=== PATIENT | male | born 1975 | race American Indian/Alaskan Native ===

== ENCOUNTER 2017-02-20 12:29 | Emergency (ER) | payer BC ==
--- NOTE | 2017-02-20 13:00 | Emergency Department Report ---
Entered by MIGUEL VARELA, acting as scribe for SERA CORRALES NP. Chief Complaint: GI Bleed Stated Complaint: VOMITING BLOOD Time Seen by Provider: 02/20/17 12:54 - HPI History of Present Illness: 41 y/o male with Hx of HTN presents with abd pain and hematemisis that has been going on for two months.. Sx include fatigue but pt denies chest pain or COLON. Pt denies taking any medication for HTN. - ROS Review of Systems: + hematemesis +abd pain +fatigue -chest pain -COLON - Exam Vital Signs: Vital Signs 02/20/17 12:48 Temperature 98.5 F Pulse Rate 97 H Respiratory 20 Rate Blood Pressure 194/129 O2 Sat by Pulse 100 Oximetry Physical Exam: abd: soft/nontender in all quadrants, no rebound or guarding. MSE screening note: Focused history and physical exam performed. Due to findings the following was ordered: ekg, labs ED Disposition for MSE Condition: Stable Forms: Accompanied Note This documentation as recorded by the scribe,MIGUEL VARELA,accurately reflects the service I personally performed and the decisions made by SAVANNA ordonez TRACY M, NP.
[2017-02-20 13:34] LABS: Basophils % (Auto) 0.9 % (0.0-1.8); Eosinophils % (Auto) 0.8 % (0.0-4.3); Hematocrit 45.9 % (35.5-45.6); Hemoglobin 14.5 gm/dl (11.8-15.2); Mean Corpuscular HGB Conc 32 % (32-34); Mean Corpuscular Hemoglobin 27 pg (28-32); Mean Corpuscular Volume 84 fl (84-94); Red Blood Count 5.45 M/mm3 (3.65-5.03); Red Cell Distribution Width 13.4 % (13.2-15.2); White Blood Count 8.2 K/mm3 (4.5-11.0)
[2017-02-20 13:42] LABS: INR 0.97 (0.87-1.13)
[2017-02-20 13:43] LABS: Partial Thromboplastin Time 28.2 Sec. (24.2-36.6)
[2017-02-20 13:48] LABS: Platelet Count 251 K/mm3 (140-440)
[2017-02-20 13:51] LABS: Alanine Aminotransferase 31 units/L (7-56); Albumin 4.6 g/dL (3.9-5); Albumin/Globulin Ratio 1.4 %; Alkaline Phosphatase 77 units/L (35-129); Anion Gap 21 mmol/L; Blood Urea Nitrogen 12 mg/dL (9-20); Calcium 9.3 mg/dL (8.4-10.2); Carbon Dioxide 22 mmol/L (22-30); Chloride 103.6 mmol/L (98-107); Glucose 92 mg/dL (75-100); Lipase 28 units/L (13-60); Potassium 3.9 mmol/L (3.6-5.0); Sodium 143 mmol/L (137-145)
--- NOTE | 2017-02-20 22:23 | Emergency Department Report ---
HPI - General Chief Complaint: GI Bleed Time Seen by Provider: 02/20/17 20:55 - HPI HPI: The patient is a 41-year-old male who presents for evaluation of chest pain. Patient reports chest pain for the past one day, midsternal in location, burning in quality, 5/10 in severity, exacerbated with retching or vomiting. He states that his symptoms began after multiple episodes of vomiting and one large episode of hematemesis. 8 hours ago. He has not had any hematemesis in the past 8 hours. He admits to frequent alcohol consumption. The patient denies fever, cough, dyspnea, syncope, hemoptysis, unilateral leg swelling, recent immobilization, history of DVT or PE, recent cancer. ED Past Medical Hx - Past Medical History Hx Hypertension: Yes Additional medical history: etoh abuse,enlarged heart - Social History Smoking Status: Current Some Day Smoker Substance Use Type: Alcohol - Medications Home Medications: Home Medications Medication Instructions Recorded Confirmed Last Taken Type HYDROcodone/APAP 5-325 [[place] 1 each PO Q6HR PRN #10 tablet 01/06/16 Unknown Rx 5/325] Ibuprofen [Motrin 400 MG tab] 400 mg PO Q8H PRN #14 tablet 01/06/16 Unknown Rx Hydrochlorothiazide [HCTZ] 25 mg PO QDAY #30 tablet 02/21/17 Unknown Rx Omeprazole Magnesium [PriLOSEC Otc] 20 mg PO QDAY #30 tablet.dr 02/21/17 Unknown Rx Ondansetron [Zofran TAB] 4 mg PO Q8HR PRN #20 tablet 02/21/17 Unknown Rx traMADol [Ultram 50 MG tab] 50 mg PO Q6HR PRN #15 tablet 02/21/17 Unknown Rx ED Review of Systems ROS: Stated complaint: VOMITING BLOOD Other details as noted in HPI Constitutional: denies: fever ENT: denies: throat or neck pain Respiratory: denies: cough, shortness of breath Cardiovascular: reports chest pain Endocrine: denies unexplained weight loss or gain Gastrointestinal: denies: abdominal pain reports nausea, vomiting Genitourinary: denies: dysuria Musculoskeletal: denies: leg swelling Skin: denies: rash Neurological: denies: headache Hematological/Lymphatic: denies: easy bleeding or easy bruising Psych: denies sadness or hopelessness Physical Exam - Physical Exam Vital Signs: Vital Signs 02/20/17 02/20/17 12:48 22:07 Temperature 98.5 F 99.1 F Pulse Rate 97 H 95 H Respiratory 20 20 Rate Blood Pressure 194/129 199/174 O2 Sat by Pulse 100 100 Oximetry Physical Exam: General: well-nourished, well-developed, no acute distress Head: Normocephalic, atraumatic Eyes: normal sclera ENT: Mucous membranes are pink and moist Neck: trachea midline, neck supple, No neck stiffness, no cervical adenopathy Respiratory: Breath sounds equal bilaterally, no wheezing, rales, or rhonchi Cardio: S1 and S2 present, no murmurs, rubs, gallops, capillary refill is brisk Abdomen: Normoactive bowel sounds, soft abdomen, no rigidity, no guarding or rebound tenderness Musc: No pitting edema Skin: No rash Neuro: no facial drooping, normal speech Psych: Normal affect ED Course Vital Signs 02/20/17 02/20/17 12:48 22:07 Temperature 98.5 F 99.1 F Pulse Rate 97 H 95 H Respiratory 20 20 Rate Blood Pressure 194/129 199/174 O2 Sat by Pulse 100 100 Oximetry ED Medical Decision Making - Lab Data Result diagrams: 02/20/17 13:08 02/20/17 13:08 - Medical Decision Making The patient was seen and examined by myself. The patient is placed on a manager monitoring and continuous pulse ox. On initial evaluation, the patient was found to be in no distress. EKG was negative for findings suggestive of acute cardiac infarct. Labs and imaging are obtained. The patient is given IV morphine for his pain, and multiple doses of labetalol and IV hydralazine for her elevated blood pressure. The patient given IV Protonix for his hematemesis and suspected peptic ulcer secondary to frequent and heavy alcohol use. Chest x- ray is negative for pneumothorax, focal consolidation, pulmonary vascular congestion, pleural effusion, or other obvious acute cardiopulmonary disease process. Lab results were non-concerning including levels of troponin, WBC, hemoglobin, hematocrit, electrolytes, renal function. The patient was reevaluated and reported that their symptoms were markedly improved. On reexamination the patient's blood pressure was found to decrease outside of range concerning for hypertensive emergency. As the patient has a MATT risk score less than 2, and a well's score less than 2, the patient is at low risk of ACS or pulmonary emboli etiology of their symptoms. The patient is stable for discharge with outpatient follow-up. The patient is given follow-up and return instructions. The patient expressed understanding and agreed with the plan. The patient is discharged in stable condition. Critical care attestation.: If time is entered above; I have spent that time in minutes in the direct care of this critically ill patient, excluding procedure time. ED Disposition Clinical Impression: Camryn-Huffman tear, Hypertensive urgency, Acute chest pain GI bleed Qualifiers: GI bleed type/associated pathology: unspecified gastrointestinal hemorrhage type Qualified Code(s): K92.2 - Gastrointestinal hemorrhage, unspecified Disposition: TO HOME OR SELFCARE Is pt being admited?: No Does the pt Need Aspirin: No Condition: Stable Instructions: Chest Pain (ED), Hypertension (ED), Chronic Hypertension (ED), Peptic Ulcer (ED), Gastritis (ED), Diet for Ulcers and Gastritis (ED) Prescriptions: Hydrochlorothiazide [HCTZ] 25 mg PO QDAY #30 tablet Omeprazole Magnesium [PriLOSEC Otc] 20 mg PO QDAY #30 tablet. Ondansetron [Zofran TAB] 4 mg PO Q8HR PRN #20 tablet PRN Reason: Nausea traMADol [Ultram 50 MG tab] 50 mg PO Q6HR PRN #15 tablet PRN Reason: Pain Referrals: PRIMARY CARE,MD [Primary Care Provider] - 3-5 Days Forms: Accompanied Note Time of Disposition: 22:23
[2017-02-20] MEDS ORDERED: NORMODYNE IV ONE (22:39)
[2017-02-20] MEDS ORDERED: MORPHINE IV ONE (22:39)
[2017-02-20] MEDS ORDERED: PROTONIX IV ONE (22:39)
[2017-02-20] MEDS ORDERED: ZOFRAN IV ONE (22:39)
[2017-02-20 23:42] LABS: Bilirubin,Urine NEG (Negative); Blood,Urine NEG (Negative); Ketones,Urine NEG (Negative); Leukocyte Esterase,Urine NEG (Negative); Mucus,Urine FEW /HPF; Nitrite,Urine NEG (Negative)
[2017-02-20] MEDS ORDERED: APRESOLINE ONE (23:51)
[2017-02-20] MEDS ORDERED: APRESOLINE IV ONE (23:55)
[2017-02-21 02:56] VITALS: BP 128/82
--- NOTE | 2017-02-21 07:12 | XRay Report ---
AP CHEST: HISTORY: chest pain AP view of the chest demonstrates a normal mediastinal and cardiac contour with clear lungs and normal bony and soft tissue structures. IMPRESSION: Unremarkable AP chest.
== END 2017-02-21 02:45 | disposition home or self-care (01) ==
LOC: ED 12:29
DX: K22.6 Gastro-esophageal laceration-hemorrhage syndrome (principal); I10 Essential (primary) hypertension; F17.210 Nicotine dependence, cigarettes, uncomplicated
CPT/HCPCS: 36415; 71010; 80053; 81001; 83690; 84484; 85025; 85610; 85730; 86850; 86900; 86901; 93005; 93010; 96374; 96375; 99284; C9113; J0360; J2270; J2405

== ENCOUNTER 2019-08-24 12:01 | Emergency (ER) | payer SELFPAY ==
[2019-08-24] MEDS ORDERED: IBUPROFEN 800 MG TAB PO ONE (13:15)
--- NOTE | 2019-08-24 13:18 | Emergency Department Report ---
Chief Complaint: Back Pain/Injury Stated Complaint: BACK PAIN - HPI History of Present Illness: 43 yo male with right lower back pain radiating to rlq and right leg x 5 days no trauma but does perform some lifting at his job no n,v, hematuria, dysuria no hx of kidney stones - Exam Vital Signs: Vital Signs 08/24/19 12:05 Temperature 99 F Pulse Rate 78 Respiratory 22 Rate Blood Pressure 149/108 [Right] O2 Sat by Pulse 98 Oximetry Physical Exam: r flank tenderness rlq tenderness lungs ctab rrr MSE screening note: Focused history and physical exam performed. Due to findings the following was ordered: ua, cbc, bmp motrin ED Disposition for MSE Condition: Stable Referrals: PRIMARY CARE, [Primary Care Provider] - 3-5 Days
[2019-08-24 13:49] LABS: Bilirubin,Urine NEG (Negative); Blood,Urine NEG (Negative); Color,Urine Yellow (Yellow); Mucus,Urine FEW /HPF; Protein,Urine <15 mg/dL mg/dL (Negative); Urobilinogen,Urine < 2.0 mg/dL (<2.0); WBC,Urine < 1.0 /HPF (0.0-6.0)
[2019-08-24 14:43] LABS: Basophils # (Auto) 0.1 K/mm3 (0.0-0.1); Eosinophils # (Auto) 0.1 K/mm3 (0.0-0.4); Eosinophils % (Auto) 0.9 % (0.0-4.3); Hematocrit 43.6 % (35.5-45.6); Hemoglobin 14.2 gm/dl (11.8-15.2); Lymphocytes # (Auto) 1.1 K/mm3 (1.2-5.4); Lymphocytes % (Auto) 18.2 % (13.4-35.0); Mean Corpuscular HGB Conc 33 % (32-34); Mean Corpuscular Volume 83 fl (84-94); Monocytes # (Auto) 0.6 K/mm3 (0.0-0.8); Monocytes % (Auto) 9.5 % (0.0-7.3); Red Blood Count 5.25 M/mm3 (3.65-5.03); Red Cell Distribution Width 13.4 % (13.2-15.2)
--- NOTE | 2019-08-24 14:43 | Emergency Department Report ---
ED General Adult HPI - General Chief complaint: Back Pain/Injury Stated complaint: BACK PAIN Time Seen by Provider: 08/24/19 13:50 Source: patient Mode of arrival: Ambulatory Limitations: No Limitations - History of Present Illness Initial comments: 43-year-old male complaining of right flank pain radiating to the right groin times one week. She denies any falls or trauma. He denies fever chills any urinary symptoms, denies vomiting nausea and diarrhea.. Denies chest pain shortness of breath. She admits to smoking cigarettes. His alcohol intake consist of 4-5 beers a day along with one shot of alcohol. -: week(s) (1) Severity scale (0 -10): 8 Improves with: none Associated Symptoms: denies other symptoms - Related Data Previous Rx's Medication Instructions Recorded Last Taken Type HYDROcodone/APAP 5-325 [[place] 1 each PO Q6HR PRN #10 tablet 01/06/16 Unknown Rx 5/325] Ibuprofen [Motrin 400 MG tab] 400 mg PO Q8H PRN #14 tablet 01/06/16 Unknown Rx Omeprazole Magnesium [PriLOSEC Otc] 20 mg PO QDAY #30 tablet. 02/21/17 Unknown Rx Ondansetron [Zofran TAB] 4 mg PO Q8HR PRN #20 tablet 02/21/17 Unknown Rx hydroCHLOROthiazide [HCTZ] 25 mg PO QDAY #30 tablet 02/21/17 Unknown Rx traMADoL [Ultram 50 MG tab] 50 mg PO Q6HR PRN #15 tablet 02/21/17 Unknown Rx Ibuprofen [Motrin] 600 mg PO Q8H PRN #21 tablet 08/24/19 Unknown Rx amLODIPine 10 mg PO DAILY #30 tab 08/24/19 Unknown Rx lisinopriL [Zestril TAB] 10 mg PO QDAY #30 tablet 08/24/19 Unknown Rx Allergies Allergy/AdvReac Type Severity Reaction Status Date / Time No Known Allergies Allergy Verified 12/16/15 21:48 ED Review of Systems ROS: Stated complaint: BACK PAIN Other details as noted in HPI Comment: All other systems reviewed and negative Constitutional: denies: chills, fever ENT: denies: ear pain, throat pain Respiratory: denies: cough Cardiovascular: denies: chest pain, palpitations Genitourinary: denies: urgency, dysuria, hematuria, testicular pain, testicular mass Neurological: denies: headache, weakness Psychiatric: denies: depression ED Past Medical Hx - Past Medical History Previous Medical History?: Yes Hx Hypertension: Yes Additional medical history: etoh abuse,enlarged heart - Surgical History Past Surgical History?: No - Social History Smoking Status: Current Some Day Smoker Substance Use Type: Alcohol - Medications Home Medications: Home Medications Medication Instructions Recorded Confirmed Last Taken Type HYDROcodone/APAP 5-325 [[place] 1 each PO Q6HR PRN #10 tablet 01/06/16 Unknown Rx 5/325] Ibuprofen [Motrin 400 MG tab] 400 mg PO Q8H PRN #14 tablet 01/06/16 Unknown Rx Omeprazole Magnesium [PriLOSEC Otc] 20 mg PO QDAY #30 tablet.dr 02/21/17 Unknown Rx Ondansetron [Zofran TAB] 4 mg PO Q8HR PRN #20 tablet 02/21/17 Unknown Rx hydroCHLOROthiazide [HCTZ] 25 mg PO QDAY #30 tablet 02/21/17 Unknown Rx traMADoL [Ultram 50 MG tab] 50 mg PO Q6HR PRN #15 tablet 02/21/17 Unknown Rx Ibuprofen [Motrin] 600 mg PO Q8H PRN #21 tablet 08/24/19 Unknown Rx amLODIPine 10 mg PO DAILY #30 tab 08/24/19 Unknown Rx lisinopriL [Zestril TAB] 10 mg PO QDAY #30 tablet 08/24/19 Unknown Rx ED Physical Exam - General Limitations: No Limitations General appearance: alert - Head Head exam: Absent: atraumatic - Eye Eye exam: Present: normal appearance - ENT ENT exam: Present: normal exam - Neck Neck exam: Present: normal inspection - Respiratory Respiratory exam: Present: normal lung sounds bilaterally - Cardiovascular Cardiovascular Exam: Present: regular rate, normal rhythm - GI/Abdominal GI/Abdominal exam: Present: soft, tenderness (Right lower quad tenderness), normal bowel sounds. Absent: distended, guarding, rigid - Extremities Exam Extremities exam: Present: normal inspection - Back Exam Back exam: Present: normal inspection, CVA tenderness (R) - Neurological Exam Neurological exam: Present: alert, oriented X3 - Psychiatric Psychiatric exam: Present: normal affect, normal mood - Skin Skin exam: Present: warm, dry, intact, normal color ED Course Vital Signs 08/24/19 08/24/19 12:05 14:15 Temperature 99 F Pulse Rate 78 Respiratory 22 18 Rate Blood Pressure 149/108 [Right] O2 Sat by Pulse 98 Oximetry ED Medical Decision Making - Lab Data Result diagrams: 08/24/19 14:20 08/24/19 14:20 - Radiology Data Radiology results: report reviewed CT OF ABD/PELVIS IMPRESSION: 1. No acute abnormality. 2. Indeterminate cystic lesions in the kidneys. Renal protocol CT or MRI is recommended on a nonemergent basis for further evaluation. This will also allow further characterization of the relatively hypoenhancing area in the liver adjacent to the falciform ligament. - Medical Decision Making 43-year-old male with complaint one week complaint of right flank and right lower quadrant abdominal pain. CBC CMP and lipase and urinalysis were done and there were no acute findings. The CAT scan of his abdomen shows cystic lesions that will need non emergent follow up. Pt also has hx of HTN and is out of medications. He was able to present the bottles. Pt also partakes in daily alcohol intake of 5-6 beer and 1 "shot". He is also a smoker. I discussed all findings in detail with patient. He his instructed to follow up with pcp or [facility] or Dr. Rubin. Critical Care Time: No Critical care attestation.: If time is entered above; I have spent that time in minutes in the direct care of this critically ill patient, excluding procedure time. ED Disposition Clinical Impression: Renal cyst Hypertension Qualifiers: Hypertension type: essential hypertension Qualified Code(s): I10 - Essential (primary) hypertension Disposition: TO HOME OR SELFCARE Is pt being admited?: No Does the pt Need Aspirin: No Condition: Stable Instructions: Hypertension (ED) Additional Instructions: The Cat scan done today shosed a complex round lesion in the left kidney measuring about 1.9 cm in diameter and a similar lesion at the inferior pole of the right kidney measures 2.7 cm in diameter with these cystic lesions in year kidney a renal protocol CT or MRI is recommended on a nonemergent basis for further evaluation this will also allow further evaluation of the hyper enhancing area in the left liver Falciform ligament. Please follow-up with your primary care doctor or [facility] or Dr. Rey Urbina STOP DRINKING ALCOHOL. STOP SMOKING CIGARETTES. Prescriptions: amLODIPine 10 mg PO DAILY #30 tab Ibuprofen [Motrin] 600 mg PO Q8H PRN #21 tablet PRN Reason: Pain lisinopriL [Zestril TAB] 10 mg PO QDAY #30 tablet Referrals: PRIMARY CARE, [Primary Care Provider] - 3-5 Days Time of Disposition: 16:37
[2019-08-24 14:48] LABS: Platelet Count 202 K/mm3 (140-440)
[2019-08-24 15:01] LABS: BUN/Creatinine Ratio 13; Blood Urea Nitrogen 15 mg/dL (9-20); Calcium 9.5 mg/dL (8.4-10.2); Hemolysis Index 5
--- NOTE | 2019-08-24 16:19 | Cat Scan Report ---
CT ABDOMEN AND PELVIS WITH CONTRAST INDICATION / CLINICAL INFORMATION: Abdominal pain, right lower quadrant tenderness. TECHNIQUE: Axial CT images were obtained through the abdomen and pelvis after 100 mL Omnipaque [address] scans at this location are performed using CT dose reduction for ALARA by means of automated exposure control. COMPARISON: None available. FINDINGS: LOWER CHEST: No significant abnormality. LIVER: Coarse calcifications in the right lobe probably representing a calcified granuloma. Wedge-sha ped area of hypoattenuation adjacent to falciform ligament probably represents a transient hepatic at tenuation difference (GENOVEVA) versus an area of focal fat deposition. Liver size and contour are normal . BILIARY SYSTEM: No significant abnormality. No abnormal distention of the gallbladder. No calcified g allstones are evident. PANCREAS: No significant abnormality. SPLEEN: No significant abnormality. ADRENALS: No significant abnormality. KIDNEYS and URETERS: Complex, heterogeneous, round lesion in the interpolar region of the left kidney measures 1.9 cm in diameter. Similar-appearing lesion at the inferior pole of the right kidney to me asure 2.7 cm in greatest dimension. Ureters are unremarkable. STOMACH / BOWEL: No significant abnormality. Normal appendix. PERITONEUM: No free fluid. No free air. No fluid collection. LYMPH NODES: No adenopathy. VASCULAR STRUCTURES: No significant abnormality. URINARY BLADDER: No significant abnormality. REPRODUCTIVE ORGANS: No significant abnormality. ADDITIONAL FINDINGS: None. SKELETAL SYSTEM: Mild osteoarthrosis of the hips and moderately advanced sacroiliitis. Multilevel ost eophytes of the lower thoracic spine. No acute skeletal abnormality or suspicious focal osseous lesio n. IMPRESSION: 1. No acute abnormality. 2. Indeterminate cystic lesions in the kidneys. Renal protocol CT or MRI is recommended on a nonemer gent basis for further evaluation. This will also allow further characterization of the relatively hy poenhancing area in the liver adjacent to the falciform ligament. Signer Name: Ephraim Farfan MD Signed: 08/24/2019 4:15 PM Workstation Name: [id number]
[2019-08-24 17:22] VITALS: BP 140/98
== END 2019-08-24 17:10 | disposition home or self-care (01) ==
LOC: ED 12:01
DX: N28.1 Cyst of kidney, acquired (principal); I10 Essential (primary) hypertension
CPT/HCPCS: 36415; 74177; 80048; 81001; 83690; 85025; 99284; Q9967

== ENCOUNTER 2020-07-07 20:53 | Emergency (ER) | payer OTHER ==
[2020-07-07 23:11] LABS: Basophils % (Auto) 0.5 % (0.0-1.8); Eosinophils % (Auto) 0.4 % (0.0-4.3); Hemoglobin 13.2 gm/dl (11.8-15.2); Lymphocytes # (Auto) 1.7 K/mm3 (1.2-5.4); Lymphocytes % (Auto) 26.8 % (13.4-35.0); Mean Corpuscular HGB Conc 32 % (32-34); Mean Corpuscular Volume 83 fl (84-94); Monocytes # (Auto) 0.5 K/mm3 (0.0-0.8); Monocytes % (Auto) 7.2 % (0.0-7.3); Platelet Count 234 K/mm3 (140-440); Red Blood Count 4.91 M/mm3 (3.65-5.03); Red Cell Distribution Width 13.6 % (13.2-15.2)
[2020-07-07 23:28] LABS: BUN/Creatinine Ratio 10; Blood Urea Nitrogen 13 mg/dL (9-20); Calcium 9.6 mg/dL (8.4-10.2); Hemolysis Index 11
[2020-07-08 00:27] LABS: Amphetamine Screen,Urine PRESUMPTIVE NEGATIVE; Benzodiazepines Screen,Urine PRESUMPTIVE NEGATIVE; Cannabinoid Screen,Urine PRESUMPTIVE NEGATIVE; Cocaine Screen,Urine PRESUMPTIVE NEGATIVE; Methadone Screen,Urine PRESUMPTIVE NEGATIVE; Opiate Screen,Urine PRESUMPTIVE NEGATIVE
[2020-07-08 00:45] LABS: Bacteria,Urine 1+ /HPF (Negative); Bilirubin,Urine NEG (Negative); Blood,Urine NEG (Negative); Color,Urine Straw (Yellow); Hyaline Casts,Urine 2 /LPF; Mucus,Urine FEW /HPF; Protein,Urine <15 mg/dL mg/dL (Negative); Urobilinogen,Urine < 2.0 mg/dL (<2.0)
--- NOTE | 2020-07-08 07:06 | Emergency Department Report ---
ED General Adult HPI - General Chief complaint: Medical Clearance Stated complaint: MEDICAL CLEARANCE Time Seen by Provider: 07/08/20 06:38 Source: patient Mode of arrival: Ambulatory Limitations: No Limitations - History of Present Illness Initial comments: Patient is a 44-year-old male presents emergency department without complaint for medical clearance center and current medical rehab for alcohol dependence. Patient denies chest pain, denies shortness of breath, denies abdominal pain, denies nausea vomiting diarrhea, denies any other ingestion. - Related Data Previous Rx's Medication Instructions Recorded Last Taken Type HYDROcodone/APAP 5-325 [[place] 1 each PO Q6HR PRN #10 tablet 01/06/16 Unknown Rx 5/325] Ibuprofen [Motrin 400 MG tab] 400 mg PO Q8H PRN #14 tablet 01/06/16 Unknown Rx Omeprazole Magnesium [PriLOSEC Otc] 20 mg PO QDAY #30 tablet. 02/21/17 Unknown Rx Ondansetron [Zofran TAB] 4 mg PO Q8HR PRN #20 tablet 02/21/17 Unknown Rx hydroCHLOROthiazide [HCTZ] 25 mg PO QDAY #30 tablet 02/21/17 Unknown Rx traMADoL [Ultram 50 MG tab] 50 mg PO Q6HR PRN #15 tablet 02/21/17 Unknown Rx Ibuprofen [Motrin] 600 mg PO Q8H PRN #21 tablet 08/24/19 Unknown Rx amLODIPine 10 mg PO DAILY #30 tab 08/24/19 Unknown Rx lisinopriL [Zestril TAB] 10 mg PO QDAY #30 tablet 08/24/19 Unknown Rx Allergies Allergy/AdvReac Type Severity Reaction Status Date / Time No Known Allergies Allergy Verified 12/16/15 21:48 ED Review of Systems ROS: Stated complaint: MEDICAL CLEARANCE Other details as noted in HPI Comment: All other systems reviewed and negative ED Past Medical Hx - Past Medical History Hx Hypertension: Yes Additional medical history: etoh abuse,enlarged heart - Social History Smoking Status: Never Smoker Substance Use Type: Alcohol - Medications Home Medications: Home Medications Medication Instructions Recorded Confirmed Last Taken Type HYDROcodone/APAP 5-325 [[place] 1 each PO Q6HR PRN #10 tablet 01/06/16 Unknown Rx 5/325] Ibuprofen [Motrin 400 MG tab] 400 mg PO Q8H PRN #14 tablet 01/06/16 Unknown Rx Omeprazole Magnesium [PriLOSEC Otc] 20 mg PO QDAY #30 tablet. 02/21/17 Unknown Rx Ondansetron [Zofran TAB] 4 mg PO Q8HR PRN #20 tablet 02/21/17 Unknown Rx hydroCHLOROthiazide [HCTZ] 25 mg PO QDAY #30 tablet 02/21/17 Unknown Rx traMADoL [Ultram 50 MG tab] 50 mg PO Q6HR PRN #15 tablet 02/21/17 Unknown Rx Ibuprofen [Motrin] 600 mg PO Q8H PRN #21 tablet 08/24/19 Unknown Rx amLODIPine 10 mg PO DAILY #30 tab 08/24/19 Unknown Rx lisinopriL [Zestril TAB] 10 mg PO QDAY #30 tablet 08/24/19 Unknown Rx ED Physical Exam - General Limitations: No Limitations General appearance: alert, in no apparent distress - Head Head exam: Present: atraumatic, normocephalic - Eye Eye exam: Present: normal appearance - ENT ENT exam: Present: mucous membranes moist - Neck Neck exam: Present: normal inspection - Respiratory Respiratory exam: Present: normal lung sounds bilaterally. Absent: respiratory distress - Cardiovascular Cardiovascular Exam: Present: regular rate, normal rhythm. Absent: systolic m urmur, diastolic murmur, rubs, gallop - GI/Abdominal GI/Abdominal exam: Present: soft, normal bowel sounds - Rectal Rectal exam: Present: deferred - Extremities Exam Extremities exam: Present: normal inspection - Back Exam Back exam: Present: normal inspection - Neurological Exam Neurological exam: Present: alert, oriented X3 - Psychiatric Psychiatric exam: Present: normal affect, normal mood - Skin Skin exam: Present: warm, dry, intact, normal color. Absent: rash ED Course Vital Signs 07/07/20 07/08/20 23:29 02:19 Temperature 98.1 F Pulse Rate 102 H 105 H Respiratory 18 18 Rate Blood Pressure 175/110 194/115 O2 Sat by Pulse 96 96 Oximetry ED Medical Decision Making - Lab Data Result diagrams: 07/07/20 22:38 07/07/20 22:38 Lab Results 07/07/20 07/07/20 07/07/20 Range/Units 22:38 22:38 22:38 WBC (4.5-11.0) K/mm3 RBC (3.65-5.03) M/mm3 Hgb (11.8-15.2) gm/dl Hct (35.5-45.6) % MCV (84-94) fl MCH (28-32) pg MCHC (32-34) % RDW (13.2-15.2) % Plt Count (140-440) K/mm3 Lymph % (Auto) (13.4-35.0) % [place] % (Auto) (0.0-7.3) % Eos % (Auto) (0.0-4.3) % Baso % (Auto) (0.0-1.8) % Lymph # (Auto) (1.2-5.4) K/mm3 [place] # (Auto) (0.0-0.8) K/mm3 Eos # (Auto) (0.0-0.4) K/mm3 Baso # (Auto) (0.0-0.1) K/mm3 Seg Neutrophils % (40.0-70.0) % Seg Neutrophils # (1.8-7.7) K/mm3 Sodium 148 H (137-145) mmol/L Potassium 4.1 (3.6-5.0) mmol/L Chloride 107.6 H (98-107) mmol/L Carbon Dioxide 27 (22-30) mmol/L Anion Gap 18 mmol/L BUN 13 (9-20) mg/dL Creatinine 1.3 (0.8-1.3) mg/dL Estimated GFR > 60 ml/min BUN/Creatinine Ratio 10 % Glucose 122 H (75-100) mg/dL Calcium 9.6 (8.4-10.2) mg/dL Urine Color (Yellow) Urine Turbidity (Clear) Urine pH (5.0-7.0) Ur Specific [place] (1.003-1.030) Urine Protein (Negative) mg/dL Urine Glucose (UA) (Negative) mg/dL Urine Ketones (Negative) mg/dL Urine Blood (Negative) Urine Nitrite (Negative) Urine Bilirubin (Negative) Urine Urobilinogen (<2.0) mg/dL Ur Leukocyte Esterase (Negative) Urine WBC (Auto) (0.0-6.0) /HPF Urine RBC (Auto) (0.0-6.0) /HPF U Epithel Cells (Auto) (0-13.0) /HPF Urine Bacteria (Auto) (Negative) /HPF Hyaline Casts /LPF Urine Mucus /HPF Salicylates < 0.3 L (2.8-20.0) mg/dL Urine Opiates Screen Urine Methadone Screen Acetaminophen 5.0 L (10.0-30.0) ug/mL Ur Barbiturates Screen Ur Phencyclidine Scrn Ur Amphetamines Screen U Benzodiazepines Scrn Urine Cocaine Screen U Marijuana (THC) Screen Drugs of Abuse Note Plasma/Serum Alcohol (0-0.07) % 07/07/20 07/07/20 07/07/20 Range/Units 22:38 22:38 23:48 WBC 6.4 (4.5-11.0) K/mm3 RBC 4.91 (3.65-5.03) M/mm3 Hgb 13.2 (11.8-15.2) gm/dl Hct 41.0 (35.5-45.6) % MCV 83 L (84-94) fl MCH 27 L (28-32) pg MCHC 32 (32-34) % RDW 13.6 (13.2-15.2) % Plt Count 234 (140-440) K/mm3 Lymph % (Auto) 26.8 (13.4-35.0) % [place] % (Auto) 7.2 (0.0-7.3) % Eos % (Auto) 0.4 (0.0-4.3) % Baso % (Auto) 0.5 (0.0-1.8) % Lymph # (Auto) 1.7 (1.2-5.4) K/mm3 [place] # (Auto) 0.5 (0.0-0.8) K/mm3 Eos # (Auto) 0.0 (0.0-0.4) K/mm3 Baso # (Auto) 0.0 (0.0-0.1) K/mm3 Seg Neutrophils % 65.1 (40.0-70.0) % Seg Neutrophils # 4.2 (1.8-7.7) K/mm3 Sodium (137-145) mmol/L Potassium (3.6-5.0) mmol/L Chloride (98-107) mmol/L Carbon Dioxide (22-30) mmol/L Anion Gap mmol/L BUN (9-20) mg/dL Creatinine (0.8-1.3) mg/dL Estimated GFR ml/min BUN/Creatinine Ratio % Glucose (75-100) mg/dL Calcium (8.4-10.2) mg/dL Urine Color (Yellow) Urine Turbidity (Clear) Urine pH (5.0-7.0) Ur Specific [place] (1.003-1.030) Urine Protein (Negative) mg/dL Urine Glucose (UA) (Negative) mg/dL Urine Ketones (Negative) mg/dL Urine Blood (Negative) Urine Nitrite (Negative) Urine Bilirubin (Negative) Urine Urobilinogen (<2.0) mg/dL Ur Leukocyte Esterase (Negative) Urine WBC (Auto) (0.0-6.0) /HPF Urine RBC (Auto) (0.0-6.0) /HPF U Epithel Cells (Auto) (0-13.0) /HPF Urine Bacteria (Auto) (Negative) /HPF Hyaline Casts /LPF Urine Mucus /HPF Salicylates (2.8-20.0) mg/dL Urine Opiates Screen Presumptive negative Urine Methadone Screen Presumptive negative Acetaminophen (10.0-30.0) ug/mL Ur Barbiturates Screen Presumptive negative Ur Phencyclidine Scrn Presumptive negative Ur Amphetamines Screen Presumptive negative U Benzodiazepines Scrn Presumptive negative Urine Cocaine Screen Presumptive negative U Marijuana (THC) Screen Presumptive negative Drugs of Abuse Note Disclamer Plasma/Serum Alcohol 0.30 H (0-0.07) % 12/15/20 Range/Units 23:49 WBC (4.5-11.0) K/mm3 RBC (3.65-5.03) M/mm3 Hgb (11.8-15.2) gm/dl Hct (35.5-45.6) % MCV (84-94) fl MCH (28-32) pg MCHC (32-34) % RDW (13.2-15.2) % Plt Count (140-440) K/mm3 Lymph % (Auto) (13.4-35.0) % [place] % (Auto) (0.0-7.3) % Eos % (Auto) (0.0-4.3) % Baso % (Auto) (0.0-1.8) % Lymph # (Auto) (1.2-5.4) K/mm3 [place] # (Auto) (0.0-0.8) K/mm3 Eos # (Auto) (0.0-0.4) K/mm3 Baso # (Auto) (0.0-0.1) K/mm3 Seg Neutrophils % (40.0-70.0) % Seg Neutrophils # (1.8-7.7) K/mm3 Sodium (137-145) mmol/L Potassium (3.6-5.0) mmol/L Chloride (98-107) mmol/L Carbon Dioxide (22-30) mmol/L Anion Gap mmol/L BUN (9-20) mg/dL Creatinine (0.8-1.3) mg/dL Estimated GFR ml/min BUN/Creatinine Ratio % Glucose (75-100) mg/dL Calcium (8.4-10.2) mg/dL Urine Color Straw (Yellow) Urine Turbidity Clear (Clear) Urine pH 5.0 (5.0-7.0) Ur Specific [place] 1.009 (1.003-1.030) Urine Protein <15 mg/dl (Negative) mg/dL Urine Glucose (UA) Neg (Negative) mg/dL Urine Ketones Neg (Negative) mg/dL Urine Blood Neg (Negative) Urine Nitrite Neg (Negative) Urine Bilirubin Neg (Negative) Urine Urobilinogen < 2.0 (<2.0) mg/dL Ur Leukocyte Esterase Neg (Negative) Urine WBC (Auto) 1.0 (0.0-6.0) /HPF Urine RBC (Auto) 1.0 (0.0-6.0) /HPF U Epithel Cells (Auto) < 1.0 (0-13.0) /HPF Urine Bacteria (Auto) 1+ (Negative) /HPF Hyaline Casts 2 /LPF Urine Mucus Few /HPF Salicylates (2.8-20.0) mg/dL Urine Opiates Screen Urine Methadone Screen Acetaminophen (10.0-30.0) ug/mL Ur Barbiturates Screen Ur Phencyclidine Scrn Ur Amphetamines Screen U Benzodiazepines Scrn Urine Cocaine Screen U Marijuana (THC) Screen Drugs of Abuse Note Plasma/Serum Alcohol (0-0.07) % Vital Signs 07/07/20 07/08/20 23:29 02:19 Temperature 98.1 F Pulse Rate 102 H 105 H Respiratory 18 18 Rate Blood Pressure 175/110 194/115 O2 Sat by Pulse 96 96 Oximetry Critical care attestation.: If time is entered above; I have spent that time in minutes in the direct care of this critically ill patient, excluding procedure time. ED Disposition Clinical Impression: Alcohol use disorder, Hypertensive disorder Disposition: DC-01 TO HOME OR SELFCARE Is pt being admited?: No Condition: Stable Instructions: Hypertension (ED), Hypertension, Adult, [id number], Alcohol Use Disorder Referrals: PRIMARY CARE, [Primary Care Provider] - 3-5 Days
[2020-07-08 07:33] VITALS: BP 154/89
== END 2020-07-08 07:33 | disposition home or self-care (01) ==
LOC: ED 20:53
DX: F10.20 Alcohol dependence, uncomplicated (principal); I16.0 Hypertensive urgency; Z79.899 Other long term (current) drug therapy
CPT/HCPCS: 36415; 80048; 80307; 80320; 81001; 85025; 99283; G0480